=== PATIENT | male | born 1985 | race African-American/Black ===

== ENCOUNTER 2019-05-01 14:18 | Emergency (ER) | payer MEDICAID ==
[~2019-05-01] VITALS: Ht 182.9 cm; Wt 103.0 kg
[2019-05-01] MEDS ORDERED: ALBUTEROL (0.083%) 2.5MG/3ML NEB HHN STA (14:47)
[2019-05-01] MEDS ORDERED: IPRATROPIUM BROMIDE (0.02%) 0.5MG/2.5ML NEB HHN STA (14:47)
[2019-05-01] MEDS ORDERED: PREDNISONE 20MG TABLET PO STA (14:47)
[2019-05-01] MEDS ORDERED: ACETAMINOPHEN WITH CODEINE 300/30MG TABLET PO ONE (15:00)
[2019-05-01 16:23] VITALS: BP 133/77
== END 2019-05-01 16:36 | disposition home or self-care (01) ==
LOC: ER 14:36
DX: J45.901 Unspecified asthma with (acute) exacerbation (principal); F17.200 Nicotine dependence, unspecified, uncomplicated; Z88.0 Allergy status to penicillin
CPT/HCPCS: 71045; 94644; 99285; J7512; J7611; Z7610

== ENCOUNTER 2020-08-11 20:14 | Emergency (ER) | payer MEDICAID ==
[~2020-08-11] VITALS: Ht 182.9 cm; Wt 118.0 kg
[2020-08-11] MEDS ORDERED: ACETAMINOPHEN 325MG TABLET PO STA (20:42)
[2020-08-11 22:33] LABS: BASOPHILS % 0.2 % (0.0-2.0); HEMATOCRIT. 44.6 % (42.0-52.0); HEMOGLOBIN. 15.9 g/dL (14.0-18.0); LYMPHOCYTES % 9.7 % (20.0-50.0); MEAN CORPUSCULAR HEMOGLOBIN 30.5 pg (28.0-32.0); MEAN CORPUSCULAR VOLUME 85.4 fL (80.0-94.0); MONOCYTES % 11.6 % (2.0-8.0); NEUTROPHILS % 78.5 % (40.0-76.0); PLATELET 184 x1000/uL (130-400); RED BLOOD CELL COUNT 5.22 mill/uL (4.7-6.1); RED CELL DISTRIBUTION WIDTH 14.3 % (11.6-14.6)
[2020-08-11 22:37] LABS: CHLORIDE 97 mEq/L (98-107)
[2020-08-11] MEDS ORDERED: POTASSIUM CHLORIDE 20MEQ TABLET SR PO ONE (23:00)
[2020-08-12 00:20] VITALS: BP 128/68
== END 2020-08-12 00:33 | disposition home or self-care (01) ==
LOC: ER 20:14
DX: E87.6 Hypokalemia (principal); R50.9 Fever, unspecified; R06.02 Shortness of breath; R05 Cough; J45.909 Unspecified asthma, uncomplicated; Z88.0 Allergy status to penicillin; Z20.822 Contact with and (suspected) exposure to COVID-19
CPT/HCPCS: 36415; 71045; 80053; 85025; 99284